=== PATIENT | female | born 1980 | race Two or more races ===

== ENCOUNTER 2018-12-08 08:39 | Day surgery (SDC) | payer BC ==
[2018-12-04 15:31] VITALS: BMI 26.8
[2018-12-08] MEDS ORDERED: LIDOCAINE HCL/PF 2% SDV 5ML VIAL ONE (10:51)
[2018-12-08] MEDS ORDERED: PROPOFOL 20 ML ONE ×2 (10:51)
[2018-12-08 11:21] VITALS: TEMP 98.6
[2018-12-08 12:03] VITALS: BP 114/70; PULSE 76
--- NOTE | 2018-12-11 15:49 | PATH ---
Surgical Pathology Report Patient Name: CHRISTY DU [facility]. Rec. #: [id number] /Age/Gender: 1980 (Age: 38) / F Account: [id number] Location: [facility] Taken: 12/08/2018 Received: 12/08/2018 Reported: 12/11/2018 Physicians: Baron Dorantes M.D. Specimen(s) Received A: BX DUODENUM B: BX ANTRUM Clinical History GERD, epigastric pain Postoperative diagnosis: Dyspepsia Final Diagnosis A. DUODENUM, BIOPSY: DUODENAL MUCOSA WITH NO PATHOLOGIC FINDINGS. B. ANTRUM, BIOPSY: MILD CHRONIC GASTRITIS. IMMUNOSTAIN IS NEGATIVE FOR H. PYLORI ORGANISMS. Electronically Signed Katie Jeong M.D. Gross Description A. Received in formalin, labeled "duodenum" are 3 valadez, irregular portions of soft tissue ranging from 0.4-0.6 cm. in greatest dimension. The specimens are submitted in toto in one cassette. B. Received in formalin, labeled "antrum biopsy" are 2 valadez, irregular portions of soft tissue measuring 0.4 and 0.6 cm. in greatest dimension. The specimens are submitted in toto in one cassette. /12/09/2018 saudi12/09/2018
== END 2018-12-08 12:05 | disposition home or self-care (01) ==
LOC: FASU-ENDO 08:39
PROVIDERS: ATTEND Internal Medicine Gastroenterology
PROC: 0DB78ZX Excision of Stomach, Pylorus, Via Natural or Artificial Opening Endoscopic, Diagnostic (ICD-10-PCS; 2018-12-08)
PROC: 0DB98ZX Excision of Duodenum, Via Natural or Artificial Opening Endoscopic, Diagnostic (ICD-10-PCS; principal; 2018-12-08 11:04)
DX: K29.50 Unspecified chronic gastritis without bleeding (principal); R10.13 Epigastric pain
CPT/HCPCS: 84703; 88305-TC; 88342-TC

== ENCOUNTER 2020-10-12 07:28 | Day surgery (SDC) | payer BC ==
[2020-10-12] MEDS ORDERED: FERRIC CARBOXYMALTOSE 750 MG in SODIUM CHLORIDE 250 ML IVPB ONE (12:30)
[2020-10-12 16:11] VITALS: TEMP 98.5
[2020-10-12 16:12] VITALS: BP 126/85; PULSE 95
== END 2020-10-12 13:50 | disposition home or self-care (01) ==
LOC: JONCNONCHE 07:28
PROVIDERS: ATTEND Internal Medicine Hematology & Oncology
PROC: 3E033GC Introduction of Other Therapeutic Substance into Peripheral Vein, Percutaneous Approach (ICD-10-PCS; principal; 2020-10-12)
DX: D50.9 Iron deficiency anemia, unspecified (principal)
CPT/HCPCS: 96365; J1439

== ENCOUNTER 2020-10-19 06:03 | Day surgery (SDC) | payer BC ==
[2020-10-19] MEDS ORDERED: FERRIC CARBOXYMALTOSE 750 MG in SODIUM CHLORIDE 250 ML IVPB ONE (08:00)
[2020-10-19 10:54] VITALS: BP 120/78; PULSE 85; TEMP 98
== END 2020-10-19 09:30 | disposition home or self-care (01) ==
LOC: JONCNONCHE 06:03
PROVIDERS: ATTEND Internal Medicine Hematology & Oncology
PROC: 3E033GC Introduction of Other Therapeutic Substance into Peripheral Vein, Percutaneous Approach (ICD-10-PCS; principal; 2020-10-19)
DX: D50.9 Iron deficiency anemia, unspecified (principal); D47.3 Essential (hemorrhagic) thrombocythemia
CPT/HCPCS: 96365; J1439